=== PATIENT | female | born 1950 | race Caucasian/White ===

== ENCOUNTER 2016-09-27 09:55 | Outpatient (CLI) | payer OTHER ==
[2016-02-07 12:58] VITALS: BP 119/69
== END 2016-09-27 10:01 ==
LOC: POD 09:55
PROVIDERS: ATTEND Podiatrist Public Medicine
DX: L84 Corns and callosities (principal); M79.671 Pain in right foot
CPT/HCPCS: 99213

== ENCOUNTER 2016-11-08 10:23 | Outpatient (CLI) | payer OTHER ==
[2016-02-07 12:58] VITALS: BP 119/69
== END 2016-11-08 10:30 ==
LOC: POD 10:23
PROVIDERS: ATTEND Podiatrist Public Medicine
DX: L84 Corns and callosities (principal); M79.671 Pain in right foot; M20.41 Other hammer toe(s) (acquired), right foot
CPT/HCPCS: 99213

== ENCOUNTER 2017-01-09 07:24 | Outpatient (CLI) | payer OTHER ==
[2016-02-07 12:58] VITALS: BP 119/69
[2017-01-09 07:54] LABS: BASOPHILS % 0.5 (0.0-1.5); EOSINOPHILS % 1.3 % (0.0-6.8); MEAN CORPUSCULAR HEMOGLOBIN 30.7 pg (28.0-34.0); MONOCYTES % 5.2 % (0.0-11.0); NEUTROPHILS # 2.7 # k/uL (1.4-7.7)
[2017-01-09 08:23] LABS: eGFR (African) > 60; eGFR (Non-African) > 60
[2017-01-09 08:37] LABS: APPEARANCE,URINE Slightly Cloudy (CLEAR); COLOR,URINE Yellow (YELLOW); OCCULT BLOOD,URINE Negative (NEGATIVE); UROBILINOGEN URINE 0.2 Eu (0.2-1.0)
== END 2017-01-09 07:25 ==
LOC: LAB 07:24
PROVIDERS: ATTEND Internal Medicine
DX: I10 Essential (primary) hypertension (principal); E78.5 Hyperlipidemia, unspecified; R73.01 Impaired fasting glucose
CPT/HCPCS: 36415; 80053; 80061; 81002; 83036; 85025

== ENCOUNTER 2017-04-10 08:20 | Outpatient (CLI) | payer OTHER ==
[2016-02-07 12:58] VITALS: BP 119/69
[2017-04-10 09:30] LABS: BASOPHILS % 0.8 (0.0-1.5); EOSINOPHILS % 1.4 % (0.0-6.8); MEAN CORPUSCULAR HEMOGLOBIN 31.2 pg (28.0-34.0); MEAN CORPUSCULAR VOLUME 86.5 fl (80.0-100.0); MONOCYTES % 6.1 % (0.0-11.0); NEUTROPHILS # 3.2 # k/uL (1.4-7.7)
[2017-04-10 09:35] LABS: eGFR (African) > 60; eGFR (Non-African) > 60
[2017-04-10 09:40] LABS: APPEARANCE,URINE Clear (CLEAR); COLOR,URINE Yellow (YELLOW); OCCULT BLOOD,URINE Negative (NEGATIVE); UROBILINOGEN URINE 0.2 Eu (0.2-1.0)
[2017-04-10 09:48] LABS: AMORPHOUS SEDIMENT,UR FEW (NEGATIVE)
== END 2017-04-10 08:21 ==
LOC: LAB 08:20
PROVIDERS: ATTEND Internal Medicine
DX: E00.0 Congenital iodine-deficiency syndrome, neurological type (principal); I10 Essential (primary) hypertension; E78.5 Hyperlipidemia, unspecified; R73.01 Impaired fasting glucose
CPT/HCPCS: 36415; 80053; 80061; 81002; 83036; 85025

== ENCOUNTER 2017-09-06 09:15 | Outpatient (CLI) | payer MEDICARE ==
[2016-02-07 12:58] VITALS: BP 119/69
== END 2017-09-06 09:16 ==
LOC: LAB 09:15
PROVIDERS: ATTEND Internal Medicine
DX: R73.09 Other abnormal glucose (principal); E21.5 Disorder of parathyroid gland, unspecified
CPT/HCPCS: 36415; 83036; 83970

== ENCOUNTER 2017-12-10 08:43 | Outpatient (CLI) | payer MEDICARE ==
[2016-02-07 12:58] VITALS: BP 119/69
== END 2017-12-10 08:44 ==
LOC: LAB 08:43
PROVIDERS: ATTEND Internal Medicine
DX: E11.9 Type 2 diabetes mellitus without complications (principal); I10 Essential (primary) hypertension; E78.00 Pure hypercholesterolemia, unspecified
CPT/HCPCS: 36415; 80069; 83036

== ENCOUNTER 2017-12-25 11:37 | Outpatient (CLI) | payer MEDICARE ==
[2016-02-07 12:58] VITALS: BP 119/69
[2017-12-25 11:56] LABS: BASOPHILS % 0.5 (0.0-1.5); EOSINOPHILS % 1.3 % (0.0-6.8); MEAN CORPUSCULAR HEMOGLOBIN 30.4 pg (28.0-34.0); MEAN CORPUSCULAR VOLUME 88.5 fl (80.0-100.0); MONOCYTES % 4.5 % (0.0-11.0); NEUTROPHILS # 3.7 # k/uL (1.4-7.7)
[2017-12-25 12:23] LABS: eGFR (Non-African) > 60
== END 2017-12-25 11:40 ==
LOC: LAB 11:37
PROVIDERS: ATTEND Family Medicine
DX: I10 Essential (primary) hypertension (principal); G43.909 Migraine, unspecified, not intractable, without status migrainosus; R25.1 Tremor, unspecified
CPT/HCPCS: 36415; 80053; 85025

== ENCOUNTER 2017-12-26 10:13 | Outpatient (CLI) | payer MEDICARE ==
[2016-02-07 12:58] VITALS: BP 119/69
--- NOTE | 2017-12-26 18:19 | Diagnostic Imaging Report ---
JANEL LASSITER [facility] [place] [facility] [address] [facility] [address] [place], [place]. [address] Report Submission Date: Dec 26, 2017 11:41:52 AM CDT Patient Study Name: AMBROCIO HERNANDEZ Date: Dec 26, 2017 10:37:00 AM CDT Modality Type: CT\SR Gender: F Description: CT BRAIN W W/O CON : 54 Institution: [facility] Physician: JANEL LASSITER Examination: CT head without contrast History: CT HEAD W/ & W/O, RT FRONTAL HEADACHE AND NEW ONSET OF RIGHT HAND TREMOR FOR A FEW WEEKS (Hx) Comparison exam: None available Technique: Noncontrast/contrast head CT protocol. Findings: Ventricles and sulci are prominent. Cerebrocerebellar parenchyma demonstrates periventricular low attenuation consistent with small vessel disease. Low density area of left basal ganglia. No evidence for parenchymal hemorrhage. No abnormal enhancement on the postcontrast imaging. No evidence for mass or mass effect. No midline shift. No extra axial fluid collections. Partial visualization of the paranasal sinuses, mastoid air cells, orbits, skull and scalp without gross irregularity. Impression: Age related changes. No acute parenchymal process. No hemorrhage. No abnormal enhancement. Recommend comparison with older exams to verify chronicity of the presumed age related changes. Electronically signed on Dec 26, 2017 11:41:52 AM CDT by: Demarcus HAMMER
== END 2017-12-26 10:14 ==
LOC: RAD 10:13
PROVIDERS: ATTEND Family Medicine
DX: G43.909 Migraine, unspecified, not intractable, without status migrainosus (principal); R25.1 Tremor, unspecified
CPT/HCPCS: 70470; Q9967

== ENCOUNTER 2018-01-22 07:23 | Outpatient (CLI) | payer MEDICARE ==
[2016-02-07 12:58] VITALS: BP 119/69
[2018-01-22 08:34] LABS: APPEARANCE,URINE CLEAR (CLEAR); COLOR,URINE YELLOW (YELLOW); OCCULT BLOOD,URINE NEGATIVE (NEGATIVE); PH URINE 5.5 (5.0 - 8.0); UROBILINOGEN URINE 0.2 Eu (0.2-1.0)
== END 2018-01-22 09:41 ==
LOC: LAB 07:23
PROVIDERS: ATTEND Family Medicine
DX: R30.0 Dysuria (principal)
CPT/HCPCS: 81002

== ENCOUNTER 2018-01-29 10:50 | Outpatient (CLI) | payer MEDICARE ==
[2016-02-07 12:58] VITALS: BP 119/69
[2018-01-29 12:58] LABS: eGFR (African) > 60; eGFR (Non-African) > 60
--- NOTE | 2018-01-29 14:10 | Diagnostic Imaging Report ---
[facility] [address] [facility] [address] [place], [place]. [address] Report Submission Date: January 29, 2018 1:07:14 PM CDT Patient Study Name: AMBROCIO HERNANDEZ Date: January 29, 2018 11:09:29 AM CDT Modality Type: CT\SR Gender: F Description: CT ABD PELVIS W/O CO : 54 Institution: [facility] Physician: JANEL LASSITER - PRAVEEN Examination: CT Abdomen/pelvis History: PT STATES RUQ/RIGHT FLANK PAIN X2 WEEKS. HX of gallbladder surgery (Hx ) Comparison exams: None available Technique: CT Abdomen/pelvis without IV protocol. Findings: Liver, spleen, adrenals, pancreas, and kidneys are without gross irregularity given exam technique. Surgical clips gallbladder fossa. No suspicious renal calcifications. Ureters are nondilated in their course through the abdomen and pelvis. No central calcifications. Bladder margin within normal limits. Abdominal aorta without aneurysm. Peripheral atherosclerotic disease. Cardiac silhouette is not enlarged. No pericardial effusion. Bowel unopacified limiting evaluation. No abnormal dilation. Stool within the large bowel limiting sensitivity. No mesenteric inflammatory changes or free fluid. Appendix not visualized. Small hiatal hernia. Mesenteric calcification. Midline umbilical hernia with omental involvement. No bowel involvement. Osseous structures demonstrate degenerative changes. Lung bases without infiltrate. No effusion. Impression: No abdominal mass or acute inflammatory process. No abnormal bowel dilation or inflammation. Midline umbilical hernia with omental involvement. No bowel involvement. Hiatal hernia. No suspicious renal calcifications or abnormal ureteric dilation. No lung base consolidation or effusion. Electronically signed on January 29, 2018 1:07:14 PM CDT by: Demarcus HAMMER
== END 2018-01-29 10:52 ==
LOC: LAB 10:50
PROVIDERS: ATTEND Family Medicine
DX: R10.9 Unspecified abdominal pain (principal); R10.11 Right upper quadrant pain
CPT/HCPCS: 36415; 74176; 80053

== ENCOUNTER 2018-02-05 13:29 | Outpatient (CLI) | payer MEDICARE ==
[2016-02-07 12:58] VITALS: BP 119/69
== END 2018-02-05 13:30 ==
LOC: CARD 13:29
PROVIDERS: ATTEND Internal Medicine Cardiovascular Disease
DX: R01.1 Cardiac murmur, unspecified (principal); I10 Essential (primary) hypertension; E78.5 Hyperlipidemia, unspecified; E11.9 Type 2 diabetes mellitus without complications; Z74.09 Other reduced mobility
CPT/HCPCS: G0463

== ENCOUNTER 2018-03-04 07:09 | Day surgery (SDC) | payer MEDICARE ==
[2016-02-07 12:58] VITALS: BP 119/69
[2018-03-04] MEDS ORDERED: LACTATED RINGERS 1,000 ML IV.SOLN IV ONE (07:10)
[2018-03-04] MEDS ORDERED: PROPOFOL 200 MG/20 ML VIAL IV ONE (07:10)
[2018-03-04] MEDS ORDERED: LIDOCAINE HCL/PF 2% 100 MG/5 ML VIAL IJ ONE (07:10)
--- NOTE | 2018-03-07 14:36 | GI Report ---
REFERRING PHYSICIAN: Dr. Billy Machuca CERTIFIED MARINE MECHANIC: Amadou Oreilly MD PROCEDURE MEDICATION: Propofol as per anesthesia. INDICATIONS: A 67-year-old woman has been having episodes of epigastric discomfort occurring almost daily. She has had a previous cholecystectomy. She did have her colon looked at in 2016. She denies dysphagia. She does have metabolic syndrome with diabetes, hypertension, and hyperlipidemia. She is referred for the above indications. There has been no change in bowel habits or blood in the stool. PROCEDURE PERFORMED: Endoscopy and biopsies. PROCEDURE: An Olympus video endoscope is passed through the esophagus under direct visualization. She has grade 2 esophagitis at the GE junction and a moderate size hiatal hernia. The stomach is entered, fundus, body, and antrum showed kind of a diffuse gastritis. There was bile present. Biopsies were taken for pathology. Pylorus was open. Duodenal bulb and first and second part of the duodenum, mucosa looks normal. The patient tolerated the procedure well. FINDINGS: 1. Diffuse gastritis with bile. 2. Hiatal hernia. 3. Distal esophagitis. RECOMMENDATIONS: 1. Would put her on a PPI once a day before first meal. 2. Would elevate the head of the bed at least 3 inches. 3. Small frequent meals. 4. Cut back on carbohydrates. 5. A 10% body weight loss would be markedly beneficial for the hernia and also for removing fat from the liver. 6. If her symptoms persist, an endoscopic ultrasound looking for some retained stone in the duct would be the next consideration. 7. I would also recommend she take an antacid at bedtime like Gaviscon. cc: Dr. Billy HAMMER
== END 2018-03-04 07:10 ==
LOC: OPSURG 07:09
PROVIDERS: ATTEND Internal Medicine Gastroenterology
DX: K29.70 Gastritis, unspecified, without bleeding (principal); K20.8 Other esophagitis; K44.9 Diaphragmatic hernia without obstruction or gangrene
CPT/HCPCS: 88304; J2001; J2704; J7120; 43239; S1016

== ENCOUNTER 2018-05-17 09:09 | Outpatient (CLI) | payer MEDICARE ==
[2016-02-07 12:58] VITALS: BP 119/69
[2018-05-17 10:52] LABS: APPEARANCE,URINE CLEAR (CLEAR); COLOR,URINE YELLOW (YELLOW)
[2018-05-17 10:53] LABS: OCCULT BLOOD,URINE NEGATIVE (NEGATIVE); UROBILINOGEN URINE 0.2 Eu (0.2-1.0)
== END 2018-05-17 09:10 ==
LOC: LAB 09:09
PROVIDERS: ATTEND Family Medicine
DX: N39.0 Urinary tract infection, site not specified (principal)
CPT/HCPCS: 81002; 87086

== ENCOUNTER 2018-05-30 09:30 | Outpatient (CLI) | payer MEDICARE ==
[2016-02-07 12:58] VITALS: BP 119/69
== END 2018-05-30 09:32 ==
LOC: LABRHC 09:30
PROVIDERS: ATTEND Family Medicine
DX: M54.5 Low back pain (principal)
CPT/HCPCS: 87086

== ENCOUNTER 2018-05-30 10:30 | Outpatient (CLI) | payer MEDICARE ==
[2016-02-07 12:58] VITALS: BP 119/69
== END 2018-05-30 10:32 ==
LOC: LAB 10:30
PROVIDERS: ATTEND Family Medicine
DX: Z53.9 Procedure and treatment not carried out, unspecified reason (principal)

== ENCOUNTER 2018-05-31 12:21 | Outpatient (CLI) | payer MEDICARE ==
[2016-02-07 12:58] VITALS: BP 119/69
--- NOTE | 2018-05-31 13:23 | Diagnostic Imaging Report ---
KENDY PULLIAM [facility] [address] [facility] [address] [address] Report Submission Date: May 31, 2018 1:04:29 PM CDT Patient Study Name: AMBROCIO HERNANDEZ Date: May 31, 2018 12:24:20 PM CDT Modality Type: DX Gender: F Description: SPINE : 54 Institution: [facility] Physician: KENDY PULLIAM Examination: Plain film lumbar spine History: RT SIDED LBP FOR SEVERAL WEEKS, NO KNOWN ACUTE TRAUMA (Hx) Findings: 3 views of the lumbar spine demonstrates scattered degenerative spurring. No compression deformity. Facet degenerative changes. Mild atherosclerotic disease involving the abdominal aorta. Impression: Degenerative changes. No compression deformity. Electronically signed on May 31, 2018 1:04:29 PM CDT by: Demarcus HAMMER
== END 2018-05-31 12:22 ==
LOC: RAD 12:21
PROVIDERS: ATTEND Physician Assistant
DX: M54.41 Lumbago with sciatica, right side (principal)
CPT/HCPCS: 72100

== ENCOUNTER 2018-06-10 08:07 | Outpatient (CLI) | payer MEDICARE ==
[2016-02-07 12:58] VITALS: BP 119/69
[2018-06-10 11:18] LABS: APPEARANCE,URINE SLIGHTLY CLOUDY (CLEAR); OCCULT BLOOD,URINE NEGATIVE (NEGATIVE); UROBILINOGEN URINE 0.2 Eu (0.2-1.0)
[2018-06-10 12:07] LABS: COLOR,URINE YELLOW (YELLOW)
== END 2018-06-10 08:09 ==
LOC: LAB 08:07
PROVIDERS: ATTEND Physician Assistant
DX: N39.0 Urinary tract infection, site not specified (principal)
CPT/HCPCS: 81002

== ENCOUNTER 2019-06-26 09:18 | Outpatient (CLI) | payer MEDICARE ==
[2016-02-07 12:58] VITALS: BP 119/69
[2019-06-26 10:04] LABS: BASOPHILS % 0.4 % (0.0-1.5); NEUTROPHILS # 2.7 # k/uL (1.4-7.7)
[2019-06-26 10:30] LABS: HDL 44 mg/dL (>40); eGFR (Non-African) > 60
== END 2019-06-26 09:23 ==
LOC: LAB 09:18
PROVIDERS: ATTEND Family Medicine
DX: I10 Essential (primary) hypertension (principal); E78.00 Pure hypercholesterolemia, unspecified
CPT/HCPCS: 36415; 80053; 80061; 85025

== ENCOUNTER 2019-07-24 09:23 | Outpatient (CLI) | payer MEDICARE ==
[2016-02-07 12:58] VITALS: BP 119/69
[2019-07-24 09:42] LABS: APPEARANCE,URINE CLEAR (CLEAR); COLOR,URINE YELLOW (YELLOW); OCCULT BLOOD,URINE NEGATIVE (NEGATIVE); UROBILINOGEN URINE 0.2 Eu (0.2-1.0)
== END 2019-07-24 09:28 ==
LOC: LAB 09:23
PROVIDERS: ATTEND Family Medicine
DX: R31.9 Hematuria, unspecified (principal); R30.9 Painful micturition, unspecified
CPT/HCPCS: 81002

== ENCOUNTER 2019-09-01 16:58 | Emergency (ER) | payer MEDICARE ==
--- NOTE | 2019-09-01 16:59 | ED Physician Documentation ---
General Adult - HISTORIAN Historian: patient - HPI Stated Complaint: laceration right thumb about 30 min prior Chief Complaint: Laceration/Recheck/Suture Onset: minutes (30) Timing: still present Further Comments: yes (She has no loss of sensation. She cut her thumb doing dishes. She has no further complaints.) - ROS CONST: no problems - PAST HX Past History: hypertension Allergies/Adverse Reactions: Allergies Allergy/AdvReac Type Severity Reaction Status Date / Time amlodipine Allergy Severe Headache Unverified 08/16/18 09:35 No Known Drug Intolerances Allergy Unverified 10/14/12 10:19 Home Medications: Ambulatory Orders Medication Instructions Recorded Atenolol 100 gm MC DAILY 12/29/16 - SOCIAL HX Smoking History: non-smoker Alcohol Use: none Drug Use: none - FAMILY HX Family History: No - VITAL SIGNS Vital Signs: Vital Signs Temp Pulse Resp BP Pulse Ox 119/69 02/07/16 12:57 - REVIEWED ASSESSMENTS Nursing Assessment Reviewed: Yes Vitals Reviewed: Yes Procedures Wound Location: upper extremity Wound's Depth, Shape: superficial Wound Explored: clean Wound Repaired With: steri-strips General Adult Physical Exam - PHYSICAL EXAM GENERAL APPEARANCE: no distress EENT: eye inspection normal, no signs of dehydration NECK: normal inspection RESPIRATORY: no resp distress, chest non-tender CVS: reg rate & rhythm, heart sounds normal ABDOMEN: soft, normal bowel sounds BACK: normal inspection SKIN: other (2 cm half tribe laceration on right thumb. Currently not bleeding . Sensation + FROM ) EXTREMITIES: non-tender NEURO: oriented X3 Discharge Clincal Impression: Laceration of right thumb Qualifiers: Encounter type: initial encounter Damage to nail status: without damage Foreign body presence: without foreign body Qualified Code(s): S61.011A - Laceration without foreign body of right thumb without damage to nail, initial encounter Referrals: Billy Machuca MD [Primary Care Provider] - 2 Days Comments: 1. Keep area clean and dry 2. Do not pick at the area 3. Watch for any symptoms of infection - significant redness, drainage or swelling 4. Follow up with PCP in 4 days for any concerns 5. Return to ER for any increased concerns Condition: Stable Disposition: 01 HOME, SELF-CARE Decision to Admit: NO Date of Decison to Admit: 09/01/19 Decision Time: 17:38
[2019-09-01] MEDS ORDERED: DIPH,PERTUSS(ACELL),TET VAC/PF 0.5 ML DISP.SYRIN IM ONE (17:12)
[2019-09-01 17:52] VITALS: BP 136/77
== END 2019-09-01 18:13 | disposition home or self-care (01) ==
LOC: ED 16:58
DX: S61.011A Laceration without foreign body of right thumb without damage to nail, initial encounter (principal); W26.9XXA Contact with unspecified sharp object(s), initial encounter; Y93.G9 Activity, other involving cooking and grilling
CPT/HCPCS: 90471; 90715; 99283; 99284